=== PATIENT | female | born 2000 | race Hispanic/Latino ===

== ENCOUNTER 2020-12-25 14:25 | Emergency (ER) | payer SELFPAY ==
--- NOTE | 2020-12-25 14:53 | Event Note ---
ED Screening Note Date of service: 12/25/20 Time: 14:57 ED Screening Note: 20-year-old -[place] female presents to the emergency room for self inflicting cuts to her left arm and left thigh. Patient states that she wanted to harm her self. She denies any homicidal ideation. Patient states she feels safe at home. Patient states that she just feels lonely. She is second from the oldest. She denies having a boyfriend. States her last menstrual period was last month. She denies any concern for denies any nausea vomiting no fever no abdominal pain no chest pain no shortness of breathing no dizziness. She denies any psychiatric diagnoses. States she has had these feelings before and she has done this before. She has not seek treatment or evaluation for this until today. This initial assessment/diagnostic orders/clinical plan/treatment(s) is/are subject to change based on patients health status, clinical progression and re- assessment by fellow clinical providers in the ED. Further treatment and workup at subsequent clinical providers discretion. Patient/guardian urged not to elope from the ED as their condition may be serious if not clinically assessed and managed. Initial orders include:
[2020-12-25 15:59] LABS: Basophils % (Auto) 0.5 % (0.0-1.8); Eosinophils # (Auto) 0.1 K/mm3 (0.0-0.4); Eosinophils % (Auto) 1.4 % (0.0-4.3); Hematocrit 36.8 % (30.3-42.9); Hemoglobin 12.3 gm/dl (10.1-14.3); Lymphocytes # (Auto) 2.2 K/mm3 (1.2-5.4); Lymphocytes % (Auto) 34.6 % (13.4-35.0); Mean Corpuscular HGB Conc 33 % (30-34); Mean Corpuscular Volume 84 fl (79-97); Monocytes # (Auto) 0.5 K/mm3 (0.0-0.8); Monocytes % (Auto) 7.4 % (0.0-7.3); Platelet Count 232 K/mm3 (140-440); Red Blood Count 4.38 M/mm3 (3.65-5.03); Red Cell Distribution Width 15.3 % (13.2-15.2)
[2020-12-25 16:03] LABS: Blood Urea Nitrogen 9 mg/dL (7-17); Calcium 9.1 mg/dL (8.4-10.2); Hemolysis Index 7
[2020-12-25 16:20] LABS: BUN/Creatinine Ratio 15
[2020-12-25 16:35] LABS: Bilirubin,Urine NEG (Negative); Blood,Urine NEG (Negative); Color,Urine Yellow (Yellow); Mucus,Urine 3+ /HPF; Protein,Urine <15 mg/dL mg/dL (Negative); Urobilinogen,Urine < 2.0 mg/dL (<2.0)
[2020-12-25 16:36] LABS: HCG Qualitative,Urine Negative (Negative)
[2020-12-25 16:41] LABS: Amphetamine Screen,Urine Negative; Benzodiazepines Screen,Urine Negative; Cocaine Screen,Urine Negative; Methadone Screen,Urine Negative; Opiate Screen,Urine Negative
--- NOTE | 2020-12-25 17:08 | Emergency Department Report ---
ED Psych HPI - General Chief Complaint: Psych Stated Complaint: SI Time Seen by Provider: 12/25/20 16:33 Source: patient Mode of arrival: Ambulatory - History of Present Illness Initial Comments: Patient is 20 years old female with no significant past medical history or psychiatric history before according to the patient report. Patient brought to the emergency room for evaluation of self inflicting wounds to the left forearm and left thigh. Patient stated that she had an argument with her boyfriend this morning. She denied having issue like this before. Patient stated that she feels depressed from time to time but not now. Patient stated that she regretted doing this. Patient denied any auditory or visual hallucination. No homicidal ideation. Patient stated that she lived with her mother. Complaint: suicidal ideation -: Sudden, This morning Associated Symptoms: denies other symptoms Treatments Prior to Arrival: none If Self Harm: self-inflicted trauma - Related Data Home Medications Medication Instructions Recorded Confirmed Last Taken No Known Home Medications [No 12/25/20 12/25/20 Unknown Reported Home Medications] Allergies Allergy/AdvReac Type Severity Reaction Status Date / Time No Known Allergies Allergy Verified 12/25/20 14:40 ED Review of Systems ROS: Stated complaint: SI Other details as noted in HPI Comment: All other systems reviewed and negative Constitutional: denies: chills, fever Respiratory: denies: cough, shortness of breath, SOB with exertion Cardiovascular: denies: chest pain, palpitations Gastrointestinal: denies: abdominal pain, nausea, vomiting Musculoskeletal: denies: back pain Neurological: denies: headache, weakness, numbness, paresthesias, confusion, abnormal gait ED Past Medical Hx - Past Medical History Previous Medical History?: No - Surgical History Past Surgical History?: No - Social History Smoking Status: Never Smoker Substance Use Type: Marijuana - Medications Home Medications: Home Medications Medication Instructions Recorded Confirmed Last Taken Type No Known Home Medications [No 12/25/20 12/25/20 Unknown History Reported Home Medications] ED Physical Exam - General Limitations: No Limitations General appearance: alert, in no apparent distress - Head Head exam: Present: atraumatic, normocephalic, normal inspection - Eye Eye exam: Present: normal appearance, PERRL - ENT ENT exam: Present: normal exam, normal orophraynx, mucous membranes moist - Neck Neck exam: Present: normal inspection, full ROM. Absent: tenderness, meningismus - Respiratory Respiratory exam: Present: normal lung sounds bilaterally - Cardiovascular Cardiovascular Exam: Present: regular rate, normal rhythm, normal heart sounds - GI/Abdominal GI/Abdominal exam: Present: soft, normal bowel sounds. Absent: distended, tenderness, guarding, rebound, rigid, organomegaly, mass, bruit, pulsatile mass, hernia - Extremities Exam Extremities exam: Present: full ROM, normal capillary refill - Back Exam Back exam: Present: normal inspection, full ROM. Absent: CVA tenderness (R), CVA tenderness (L) - Neurological Exam Neurological exam: Present: alert, oriented X3, CN II-XII intact - Skin Skin exam: Present: warm, dry, other (Multiple abrasion to the left forearm and left thigh.) ED Course Vital Signs 12/25/20 12/25/20 12/25/20 14:34 15:00 20:05 Temperature 98.3 F Pulse Rate 80 Respiratory 20 18 Rate Blood Pressure 109/75 Blood Pressure [Right] O2 Sat by Pulse 100 Oximetry 12/25/20 20:53 Temperature 98.9 F Pulse Rate 83 Respiratory 18 Rate Blood Pressure Blood Pressure 103/71 [Right] O2 Sat by Pulse 97 Oximetry ED Medical Decision Making - Lab Data Result diagrams: 12/25/20 15:13 12/25/20 15:13 - Medical Decision Making Patient is 20 years old female with no significant past medical history or psychiatric history before according to the patient report. Patient brought to the emergency room for evaluation of self inflicting wounds to the left forearm and left thigh. Patient stated that she had an argument with her boyfriend this morning. She denied having issue like this before. Patient stated that she feels depressed from time to time but not now. Patient stated that she regretted doing this. Patient denied any auditory or visual hallucination. No homicidal ideation. Patient stated that she lived with her mother. Labs reviewed and is unremarkable. Patient is medically cleared evaluated by psychiatric team. Patient evaluated by our psychiatric team and advised to discharge patient home to follow-up as an outpatient. For further information please refer to mental health product development worker notes. Patient again denied any suicidal ideation. She stated that she regretted doing this. Patient stated that she staying with her mother in her home. Mental health product development worker spoke to mother on the phone and contracted for safety. Patient advised to follow-up as an outpatient and to return to the ER if she develop any new symptoms or if symptoms get worse. Critical care attestation.: If time is entered above; I have spent that time in minutes in the direct care of this critically ill patient, excluding procedure time. ED Disposition Clinical Impression: Suicidal ideation Disposition: DC-01 TO HOME OR SELFCARE Is pt being admited?: No Condition: Stable Instructions: Suicidal Feelings: How to Help Yourself Additional Instructions: Professional and Agency Contacts To help [facility](29/03) [place] Crisis Line: Suicide Prevention Line: Crisis Text Line: Text START to 801153 Emergency: 911 Outpatient COMMUNITY Behavioral Health Resources: [facility]EL[facility]: [facility] [address] [place], [place] [address] [place]: [facility] [address] [place] [address] [place]: [facility] - [address] [place] [address] Wednesday thru Wednesday - 8am - 5pm [facility] Address: [address] [place] [address] [place]: [facility] Address: [address] [place] [address] Wednesday thru Wednesday- 7am-2pm [facility] Address: [address] [place] [address] Wednesday thru Wednesday: 8:30AM-5PM In case of an emergency, please contact the following numbers: [place] Crisis and Access Line: Number: Crisis Text Line: (Text START) Number: 904790 Suicide Prevention Line: Number: Emergency Number: 911 SUBSTANCE ABUSE PROGRAMS: [facility]: Location: [place], [place] [facility] Address: [address] [place] [address] [facility]: Address: [address], [place] [address] [facility]: Address: [address] [facility] [place] [address] [facility]: Address: [address] [place] [address] [facility] Address: [address] [place] [address]. Please contact above numbers to attempt placement into free based program. Medicaid Programs: [facility]: Address: [address] [facility], [place] [address] [facility]: Address: [address] [place] [address] OUTPATIENT MENTAL HEALTH RESOURCES [facility], [facility] Nikky Gutierrez MD: [address], [address] [facility] [address] [place] [address] [place] [address] [facility]: [facility] [address] [place] [address] [place] [address] [phone] [facility]: [facility]: [address] [facility] [address] [facility] [place] [address] [facility] [address] [facility]: Da Goode MD: [address] [facility] [address] [facility] [id number] [facility]: [address] [place] [address] [phone] [place] CRISIS AND ACCESS LINE: Referrals: PRIMARY CARE, [Primary Care Provider] - 3-5 Days
[2020-12-25] MEDS ORDERED: TETANUS,DIPH,PERTUSS(ACELL) VACCINE 0.5 ML SYRINGE IM ONE ×2 (17:28→19:48)
[2020-12-25 17:53] LABS: Cannabinoid Screen,Urine Positive
[2020-12-25 20:55] VITALS: BP 103/71
== END 2020-12-25 21:53 | disposition home or self-care (01) ==
LOC: EEVIPCON 14:25 → ED 14:25
DX: R45.851 Suicidal ideations (principal); F12.10 Cannabis abuse, uncomplicated
CPT/HCPCS: 36415; 80048; 80307; 80320; 81001; 81025; 84703; 85025; 90471; 90715; 99283; G0480